=== PATIENT | female | born 1955 | race American Indian/Alaskan Native ===

== ENCOUNTER 2017-08-03 22:28 | Emergency (ER) | payer MEDICAID, OTHER ==
[2017-08-03 22:57] VITALS: BP 148/85
[2017-08-03] MEDS ORDERED: cefTRIAXone 1 GM, Lidocaine 1% 2.1 ML IM ONE ×2 (23:40)
[2017-08-03] MEDS ORDERED: Ketorolac 60 MG/2 ML SDV IM ONE (23:40)
--- NOTE | 2017-08-03 23:49 | EDM.PDOC ---
ED HPI GENERAL MEDICAL PROBLEM - General Chief Complaint: ENT Problem Stated Complaint: TOOTHACHE Time Seen by Provider: 08/03/17 23:27 Source of Information: Reports: Patient History Limitations: Reports: No Limitations - History of Present Illness INITIAL COMMENTS - FREE TEXT/NARRATIVE: Dental pain; this is a 62 -year-old female presents to the emergency room with family member, reports dental pain for the past week now has concerns due to facial edema. Mrs. Morejon reports worsening pain the last 2 days not able to sleep due to pain. 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: Acetaminophen Left Tooth/Teeth Pain Score (Numeric/FACES): 8 - Related Data Allergies Allergy/AdvReac Type Severity Reaction Status Date / Time No Known Allergies Allergy Verified 08/03/17 22:57 Home Meds: Home Meds NK [No Known Home Meds] 08/03/17 [History] Past Medical History [employer] SAL[employer] History: Reports: Musculoskeletal History: Reports: Fibromyalgia Neurological History: Reports: Migraines Other Neuro History: brain anerysm, 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 Psychiatric History: Reports: Anxiety, Depression Social & Family History - Tobacco Use Smoking Status *Q: Unknown Ever Smoked Years of Tobacco use: 30 Packs/Tins Daily: 0.2 - Alcohol Use Days Per Week of Alcohol Use: 0 - Recreational Drug Use Recreational Drug Use: No - Living Situation & Occupation Living situation: Reports: with Family (Lives with family in [facility]) ED ROS ENT - Review of Systems Review Of Systems: See Below Constitutional: Reports: Other (Pain) HEENT: Reports: Dental Pain, Other (Left sided facial pain) Respiratory: Reports: No Symptoms Cardiovascular: Reports: No Symptoms Endocrine: Reports: No Symptoms GI/Abdominal: Reports: No Symptoms (No) : Reports: No Symptoms Musculoskeletal: Reports: No Symptoms Skin: Reports: No Symptoms Neurological: Reports: No Symptoms Psychiatric: Reports: No Symptoms Hematologic/Lymphatic: Reports: No Symptoms Immunologic: Reports: No Symptoms ED EXAM, ENT - Physical Exam Exam: See Below Exam Limited By: No Limitations General Appearance: Alert, WD/WN, Mild Distress, Other (Holding her left side of face and her hands for comfort. Marked edema is noted to the left lower jaw extends to the ear does not involve the neck or the eyes.) Eye Exam: Bilateral Eye: Normal Inspection Ears: Normal External Exam, Normal Canal, Hearing Grossly Normal, Normal TMs Nose: Normal Inspection, Normal Mucousa, No Blood Mouth/Throat: Normal Lips, Dental Abcess (Left lower jaw), Dental Pain ( multiple teeth on the lower jaw as well as upper jaw with severe decay and gums with inflammation extremely tender to touch.), Dental Tenderness Head: Facial Swelling (Left jaw), Facial Tenderness Neck: Normal Inspection, Supple, Non-Tender, Full Range of Motion Respiratory/Chest: Lungs Clear, No Accessory Muscle Use Cardiovascular: Regular Rate, Rhythm, No Murmur GI/Abdominal: Soft Psychiatric: Normal Affect, Tearful Skin: Warm, Dry, Intact, Other (The pallor noted to face no acute redness does have a few impetigo like lesions to the left cheek.) Lymphatic: No Adenopathy Course - Vital Signs Last Recorded V/S: Last Vital Signs Temp 36.3 C 08/03/17 22:55 Pulse 69 08/03/17 22:55 Resp 14 08/03/17 22:55 BP 148/85 H 08/03/17 22:55 Pulse Ox 98 08/03/17 22:55 - Orders/Labs/Meds Meds: Medications Discontinued Medications Generic Name Dose Route Start Last Admin Trade Name Freq PRN Reason Stop Dose Admin Ceftriaxone Sodium 1 gm/ 0 gm 08/03/17 23:40 Lidocaine HCl 2.1 ml IM 08/03/17 23:41 ONETIME ONE Ketorolac Tromethamine 60 mg 08/03/17 23:40 Toradol IM 08/03/17 23:41 ONETIME ONE - Re-Assessments/Exams Free Text/Narrative Re-Assessment/Exam: 08/04/17 00:00 Discussed with Mrs. Morejon IV fluids and antibiotics at this time she has other family obligations is not able to stay in hospital for treatment and declines that plan of care. Will give Toradol 60 mg IM and Rocephin 1 g IM will send scripts for clindamycin 150 mg 2 tabs 3 times a day 10 days #60 prescription for hydrocodone 5/325 one every 4-6 hours when necessary pain #8 advised to follow-up with her primary care dental on Thursday for evaluation also advised return to ER sooner if not improving the next 24 hours her symptoms worsen. Mrs. Morejon family member agree with plan of care Departure - Departure Time of Disposition: 00:02 Disposition: Home, Self-Care 01 Condition: Good Clinical Impression: Cellulitis and abscess of face, Infected dental caries - Discharge Information Instructions: Cellulitis, Adult Referrals: PCP,None [Primary Care Provider] - Forms: ED Department Discharge Care Plan Goals: Facial cellulitis and dental infection -Given Rocephin 1 g IM in emergency room -Given Toradol 60 mg IM in emergency room Prescription; clindamycin 150 mg take 2 tablets 3 times a day till gone#60 -Continue Tylenol [id number] as directed for pain or fever -Continue Motrin 400 mg one to 2 every 6-8 hours when necessary pain -Hydrocodone 5/3/25 one every 4-6 hours as needed for pain #8 tablets Apply warm moist heat to area for comfort Advised follow-up in dental clinic as soon as possible patient plans to be seen at [facility] on Thursday Return to ER if has increased facial swelling, pain, fever, chills or worsening of symptoms.- - Problem List & Annotations (1) Cellulitis and abscess of face SNOMED Code(s): 278131536 Code(s): L03.211 - CELLULITIS OF FACE; L02.01 - CUTANEOUS ABSCESS OF FACE Status: Acute Priority: High Current Visit: Yes (2) Infected dental caries SNOMED Code(s): 42379302 Code(s): K02.9 - DENTAL CARIES, UNSPECIFIED; K04.7 - PERIAPICAL ABSCESS WITHOUT SINUS Status: Acute Priority: High Current Visit: Yes - Problem List Review Problem List Initiated/Reviewed/Updated: Yes - Assessment/Plan Plan: Facial cellulitis and dental infection -Given Rocephin 1 g IM in emergency room -Given Toradol 60 mg IM in emergency room Prescription; clindamycin 150 mg take 2 tablets 3 times a day till gone#60 -Continue Tylenol [id number] as directed for pain or fever -Continue Motrin 400 mg one to 2 every 6-8 hours when necessary pain -Hydrocodone 5/3/25 one every 4-6 hours as needed for pain #8 tablets Apply warm moist heat to area for comfort Advised follow-up in dental clinic as soon as possible patient plans to be seen at [facility] on Thursday Return to ER if has increased facial swelling, pain, fever, chills or worsening of symptoms.-
== END 2017-08-04 00:03 | disposition home or self-care (01) ==
LOC: JP.ED 22:28
DX: K02.9 Dental caries, unspecified (principal); L03.211 Cellulitis of face; L02.01 Cutaneous abscess of face
CPT/HCPCS: 96372; 99283; J0696; J1885